=== PATIENT | female | born 1985 | race Caucasian/White ===

== ENCOUNTER 2016-08-20 16:57 | Emergency (ER) | payer SELFPAY ==
[~2016-08-20] VITALS: Ht 172.7 cm; Wt 61.2 kg
[2016-08-20 17:00] VITALS: BP 100/63; PULSE 58; RESP 16; TEMP 98.2; O2SAT 99
--- NOTE | 2016-08-20 17:29 | PD ---
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 She denies any fever, vomiting, abdominal pain or other concurrent complaints. She states her last menstrual cycle was a couple weeks ago. She denies possibility of . She states she uses protection when she has sex and has not had an STD since she was 15 years old. She is concerned with the odor. [facility] Past Medical History Medical History: Denies Significant Hx Tetanus Vaccination: > 5 Years Influenza Vaccination: No ?: Not Past Surgical History Surgical History: No Previous Surgery Social History Alcohol Use: Yes (SOCIAL) Tobacco Use: No Substance Use: No Allergies-Medications (Allergen,Severity, Reaction): Coded Allergies: No Known Allergies (Unverified , 08/20/16) Reported Meds & Prescriptions Reported Meds & Active Scripts Active No Active Prescriptions or Reported Medications Review of Systems Except as stated in HPI: all other systems reviewed are Neg Physical Exam Narrative GENERAL: Well-nourished, well-developed patient. Well-appearing SKIN: Warm and dry. HEAD: Normocephalic and atraumatic. EYES: No injection or drainage. ENT: No nasal drainage noted. NECK: Supple, trachea midline. CARDIOVASCULAR: Regular rate and rhythm RESPIRATORY: No increased effort. No accessory muscle use. GASTROINTESTINAL: Abdomen soft, non-tender, nondistended. GENITOURINARY: Normal external genitalia without lesions or erythema. Vaginal vault without blood , small amount of white drainage. Cervical os was closed without drainage. No cervical motion tenderness. Uterus nontender. Bilateral adnexa nontender NEUROLOGICAL: Awake and alert. Motor and sensory grossly within normal limits. Normal speech. Data Data Last Documented VS Vital Signs Date Time Temp Pulse Resp B/P Pulse Ox O2 Delivery O2 Flow Rate FiO2 08/20/16 17:00 98.2 58 16 100/63 99 Orders Gc And Chlamydia Pcr (08/20/16 17:25) Wet Prep Profile (08/20/16 17:25) Labs Laboratory Tests Test 08/20/16 17:30 Clue Cells (Wet Prep) PRESENT Vaginal Trichomonas (Wet Prep) NONE SEEN Vaginal Yeast (Wet Prep) NONE SEEN MDM Medical Decision Making Medical Screen Exam Complete: Yes Emergency Medical Condition: Yes Medical Record Reviewed: Yes (past history confirmed) Interpretation(s) wet prep is positive for clue cells Differential Diagnosis Yeast infection, STD, vaginal irritation Narrative Course Will check wet prep and gonorrhea and chlamydia and reevaluate. Patient will have gonorrhea Chlamydia result called to her and if positive she can seek treatment. She agrees to this plan and will be updated with wet prep Patient denies any new complaints, all questions answered. Patient knows that follow up is incumbent on them and to return to the emergency room immediately if new or worsening symptoms develop. Patient given strict return precautions, vitals reviewed and are normal, agrees to further workup as an outpatient. will treat bv Diagnosis Primary Impression: Bacterial vaginosis Patient Instructions: General Instructions Additional Instructions: Follow with gynecology, return as needed, take Flagyl as directed Med/Other Pt SpecificInfo: Prescription(s) given Scripts Metronidazole (Flagyl)500 Mg Gpu324 Mg PO BID 7 Days Prov:Tiffanie Burton MD 08/20/16 Disposition: 01 DISCHARGE HOME Condition: Stable Tiffanie Burton MD August 20, 2016 17:29
[2016-08-20] MEDS ORDERED: METR-1 PO (17:42)
[2016-08-20 22:21] LABS: CHLAMYDIA PCR NOT DETECTED (NOT DETECT); NEISSERIA PCR NOT DETECTED (NOT DETECT)
== END 2016-08-20 17:55 | disposition home or self-care (01) ==
LOC: PHED 16:57
DX: N76.0 Acute vaginitis (principal)
CPT/HCPCS: 87210; 87491; 87591; 99283